=== PATIENT | female | born 1970 | race African-American/Black ===

== ENCOUNTER → 2016-10-28 | Outpatient (CLI) | payer OTHER | LOC: WI 10:51 | PROVIDERS: ATTEND Internal Medicine Geriatric Medicine | DX: Z12.31 Encounter for screening mammogram for malignant neoplasm of breast (principal) | CPT/HCPCS: 77067; G0202 ==

== ENCOUNTER → 2018-06-12 | Outpatient (CLI) | payer OTHER ==
--- NOTE | 2018-06-12 12:04 | WOMENS IMAGING REPORT ---
EXAM DESCRIPTION: 3D SCREENING MAMMO BILAT COMPLETED DATE/TIME: 06/12/2018 9:59 am REASON FOR STUDY: SCREENING MAMMO Z12.31 ENCNTR SCREEN MAMMOGRAM FOR MALIGNANT NEOPLASM OF LISETTE COMPARISON: Mammograms 2013, 2015, 2016 TECHNIQUE: Standard craniocaudal and mediolateral oblique views of each breast recorded using digita l acquisition and breast tomosynthesis. LIMITATIONS: None. FINDINGS: Findings present which are benign by mammographic criteria. No suspicious masses, calcifi cations or architectural distortion. Pertinent benign findings: Since the most recent mammograms 10/28/2016, patient has undergone bilatera l breast reduction. Benign postsurgical changes are present bilaterally. Read with the assistance of CAD. .[facility] - R2 Cenova Version 1.3 .[facility] - R2 Cenova Version 1.3 .[facility] - R2 Cenova Version 2.4 .[facility] - R2 Cenova Version 2.4 .[facility] - R2 Document Review Specialist Version 9.2 Benign mammographic findings may include one or more of the following: Smooth masses, popcorn/rim/co arse calcifications, asymmetries, post-procedure changes, and lesions with long-standing stability. IMPRESSION: BENIGN MAMMOGRAPHIC FINDINGS. BIRADS 2 BREAST DENSITY: b. There are scattered areas of fibroglandular density. BIRAD: 2 BENIGN FINDING(S) RECOMMENDATION: RECOMMENDATION: ROUTINE SCREENING Please continue yearly bilateral screening mammography/tomosynthesis in May 2019 COMMENT: The patient has been notified of the results by letter per MQSA requirements. Additional no tification policies are in place for contacting patient with suspicious or incomplete findings. Quality ID #[id number]: The [employer] recommends an annual screening mammogram for women aged 40 years or over. This facility utilizes a reminder system to ensure that all patients receive reminder letters, and/or direct phone calls for appointments. This includes reminders for routine scr eening mammograms, diagnostic mammograms, or other Breast Imaging Interventions when appropriate. Th is patient will be placed in the appropriate reminder system. The [employer] (ACR) has developed recommendations for screening MRI of the breast s in certain patient populations, to be used in conjunction with mammography. Breast MRI surveillanc e may be appropriate for women with more than 20% lifetime risk of developing breast cancer as deter mined by genetic testing, significant family history of the disease, or history of mantle radiation f or Hodgkins Disease. ACR Practice Guidelines 2008. DBT Technology DBT is a type of tomographic mammography. With conventional mammography, overlapping breast tissue ma y make lesions difficult to detect, even with good compression. DBT uses an x-ray tube that rotates a round the breast, taking images at different angles. These images are then combined to create thin sl ices of the breast that the radiologist can view as a 3D reconstruction. The HoloCaspida unit can perform full-field digital mammograms (2D imaging); or DBT (3D imaging); or both, in a combination mode that quickly performs both the mammogram and the tomosynthesis scan while the breast is still compressed. PQRS 6045F: Fluoroscopic imaging is not utilized for breast tomosynthesis. TECHNICAL DOCUMENTATION: FINDING NUMBER: (1) ASSESSMENT: (1) JOB ID: [id number] [employer]- All Rights Reserved Reading location - IP/workstation name: [email or web address]
== END ==
LOC: WI 09:24
PROVIDERS: ATTEND Internal Medicine Geriatric Medicine
DX: Z12.31 Encounter for screening mammogram for malignant neoplasm of breast (principal)
CPT/HCPCS: 77063; 77067

== ENCOUNTER 2020-04-02 05:39 | Inpatient (IN) | payer OTHER ==
[2020-03-30 11:54] LABS: ABSOLUTE BASOPHILS # (AUTO) 0.1 10^3/uL (0.0-0.2); ABSOLUTE EOSINOPHILS # (AUTO) 0.1 10^3/uL (0.0-0.6); ABSOLUTE LYMPHOCYTES (AUTO) 3.4 10^3/uL (0.5-4.7); ABSOLUTE MONOCYTES (AUTO) 0.4 10^3/uL (0.1-1.4); ABSOLUTE NEUT (AUTO) 4.2 10^3/uL (1.7-8.2); BASOPHILS % (AUTO) 0.9 % (0-2); EOSINOPHILS % (AUTO) 0.8 % (0-6); HEMATOCRIT 38.4 % (36.0-47.0); HEMOGLOBIN 12.9 g/dL (12.0-15.5); LYMPHOCYTES % (AUTO) 41.6 % (13-45); MEAN CORPUSCULAR HEMOGLOBIN 29.9 pg (27.0-33.4); MEAN CORPUSCULAR HGB CONC 33.6 g/dL (32.0-36.0); MEAN CORPUSCULAR VOLUME 89 fl (80-97); MONOCYTES % (AUTO) 5.2 % (3-13); PLATELET COUNT 315 10^3/uL (150-450); RED BLOOD COUNT 4.31 10^6/uL (3.72-5.28); RED CELL DISTRIBUTION WIDTH 14.1 % (11.5-14.0); SEGMENTED NEUTROPHILS % (AUTO) 51.5 % (42-78); TOTAL CELLS COUNTED % (AUTO) 100 %; WHITE BLOOD COUNT 8.2 10^3/uL (4.0-10.5)
[2020-03-30 12:16] LABS: ANION GAP 6 (5-19); BLOOD UREA NITROGEN 12 mg/dL (7-20); CALCIUM 9.7 mg/dL (8.4-10.2); CARBON DIOXIDE 31 mmol/L (22-30); CHLORIDE 101 mmol/L (98-107); GLUCOSE 99 mg/dL (75-110); POTASSIUM 4.6 mmol/L (3.6-5.0)
--- NOTE | 2020-03-30 12:32 | EKG REPORT ---
SEVERITY:- BORDERLINE ECG - SINUS RHYTHM PROBABLE LEFT ATRIAL ABNORMALITY : Confirmed by: Jayce Toney MD 30-Mar-2020 12:30:50
[~2020-04-02 05:39] MED LIST: CEFAZOLIN 2 GM/D5W RTU 2 GM/50 ML RTUPB IV ONE; CEFAZOLIN 2 GM/D5W RTU 2 GM/50 ML RTUPB IV PRN; LACTATED RINGERS 1000 ML IV PRN; LIDOCAINE 0.5% INJ-PF (5 MG/ML) 50 ML SDV SUBCUT PRN
[2020-04-02] MEDS ORDERED: EPHEDRINE SULFATE INJ 50 MG/1 ML AMPULE ONE (07:14)
[2020-04-02] MEDS ORDERED: FENTANYL CITRATE INJ/PF 100 MCG/2 ML AMPUL ONE (07:14)
[2020-04-02] MEDS ORDERED: PROPOFOL INJ 200 MG/20 ML VIAL IV ONE (07:14)
[2020-04-02] MEDS ORDERED: HYDROMORPHONE HCL INJ/PF 2 MG/ML AMPULE ONE (07:14)
[2020-04-02] MEDS ORDERED: MIDAZOLAM 2 MG/2 ML INJ ONE (07:14)
[2020-04-02] MEDS ORDERED: ROPIVACAINE HCL 0.5% INJ/PF (5 MG/1 ML) 30 ML SDV ONE ×2 (07:24→09:14)
[2020-04-02] MEDS ORDERED: BUPIVACAINE INJ/PF LIPOSOME/PF 266 MG/20 ML SDV ONE ×2 (07:47→09:25)
[2020-04-02] MEDS ORDERED: METHYLENE BLUE 50 MG/10 ML AMPULE ONE (08:11)
[2020-04-02] MEDS ORDERED: ONDANSETRON HCL INJ/PF 4 MG/2 ML SDV IV PRN ×2 (08:50→11:07)
[2020-04-02] MEDS ORDERED: PROMETHAZINE HCL INJ 25 MG/1 ML VIAL IV PRN ×2 (08:50)
[2020-04-02] MEDS ORDERED: OXYCODONE-ACETAMINOPHEN 5-325 MG TABLET PO PRN ×2 (08:50)
[2020-04-02] MEDS ORDERED: FENTANYL CITRATE INJ/PF 100 MCG/2 ML AMPUL IV PRN ×3 (08:50)
[2020-04-02] MEDS ORDERED: DIPHENHYDRAMINE HCL 50 MG/ML VIAL IV PRN (08:50)
[2020-04-02] MEDS ORDERED: MEPERIDINE HCL/PF INJ 25 MG/1 ML DISP.SYRIN IV PRN (08:50)
[2020-04-02] MEDS ORDERED: ROPIVACAINE HCL 0.2% INJ/PF (2 MG/ML) 20 ML SDV ONE (09:13)
--- NOTE | 2020-04-02 11:06 | Operative Report ---
Operative Report DATE OF SURGERY: 04/02/20 PREOPERATIVE DIAGNOSIS: Ventral hernia and abdominal pannus POSTOPERATIVE DIAGNOSIS: Ventral wall hernia and abdominal pannus OPERATION: Panniculectomy with abdominal wall hernia repair and abdominal plasty SURGEON: MIKEY DAVID 1ST RN DOCUMENT IMPROVEMENT SPECIALIST: JONATHAN JACBO ANESTHESIA: GA TISSUE REMOVED OR ALTERED: Abdominal pannus COMPLICATIONS: None ESTIMATED BLOOD LOSS: 100 INTRAOPERATIVE FINDINGS: See note PROCEDURE: Patient was brought to the operating awake alert stable condition placed on the operating table in a supine position induced under general anesthesia intubated. The abdomen was then prepped and draped in usual sterile fashion. After appropriate timeout site verification the procedure commenced. Patient was previously marked for her skin folds in preop a curvilinear incision was made from the anterior superior iliac spine on the left right and carried across the pubic symphysis to the left. Dissection was carried down through subcutaneous tissue with a knife and then Bovie cautery to the rectus fascia. We then raised the superior skin flap from the pubic symphysis to the costal margins on both sides including the umbilicus which was markedly scarred down and could not be salvaged during this procedure. Once the skin flap was raised up off the intra-abdominal wall we noted the hernia in the midline which was approximately 4 cm long we excised the sac with Bovie cautery from the fascial edges being careful not to injure the underlying bowel. We then excised the abdominal pannus. This was done with Bovie cautery. Once this was removed we are able to address the ventral hernia the hernia had adhesions of omentum to the edges which were taken down sharply being careful not to injure the underlying bowel once we completely freed up the all the adhesions we then imbricated the midline fascia with interrupted #2 Polysorb sutures from the pubic symphysis up to the umbilicus where the hernia began. We then closed the hernia defect with interrupted #2 Polysorb sutures and imbricated that incision with #2 Polysorb sutures to create a abdominal plasty as well as a hernia repair. Once it was closed we then used a piece of bio a mesh and tacked it onto the anterior abdominal wall this was approximately 20 cm long by 20 cm wide and was tacked down with circumferentially placed 2-0 Vicryl sutures. The undersurface of the abdominal skin was then sprayed with Tisseel tissue sealant and then approximated to the skin on the perineum and closed in 2 layers the for the Jamia's fascia was closed with 2-0 Vicryl suture and the this was done over a subdermal tissue was closed with interrupted 3-0 Vicryl sutures Akira drain exiting both sides of the incision the skin was then closed with intracuticular 4-0 Monocryl Steri-Strips completed the procedure an abdominal binder was placed the patient was awakened in the operating extubated transferred recovery in stable condition no complications BIGG Cintron was present for the entire operation for help with wound retraction wound closure
[2020-04-02] MEDS ORDERED: POTASSI CL 20 MEQ/D5-1/2NS 1L 1,000 ML IV PRN (11:09)
[2020-04-02] MEDS ORDERED: MEPERIDINE HCL/PF INJ 25 MG/1 ML DISP.SYRIN ONE ×2 (11:21→12:03)
[2020-04-02] MEDS: PIPERACILLIN SODIUM/TAZOBACTAM 2.25 GM in NORMAL SALINE 50 ML IV SCH ×2 (13:22→17:17)
[2020-04-02] MEDS: MORPHINE SULFATE 10 MG/ML INJ IV PRN ×3 (13:28→21:38)
[2020-04-02] MEDS ORDERED: NEOSTIGMINE METHYLSULFATE 10 MG/10 ML VIAL ONE (14:59)
[2020-04-02] MEDS ORDERED: PHENYLEPHRINE HCL INJ/PF 10 MG/1 ML SDV ONE (14:59)
[2020-04-02] MEDS ORDERED: METOCLOPRAMIDE HCL INJ/PF 10 MG/2 ML SDV ONE (14:59)
[2020-04-02] MEDS ORDERED: ONDANSETRON HCL INJ/PF 4 MG/2 ML SDV ONE (14:59)
[2020-04-02] MEDS ORDERED: DEXAMETHASONE SOD PHOSPHATE INJ 4 MG/1 ML VIAL ONE (14:59)
[2020-04-02] MEDS ORDERED: LIDOCAINE 2% INJ-PF (20 MG/ML) 2 ML AMPUL ONE (14:59)
[2020-04-02] MEDS ORDERED: ROCURONIUM BROMIDE INJ 50 MG/5 ML VIAL IV ONE (14:59)
[2020-04-02] MEDS ORDERED: GLYCOPYRROLATE 1 MG/5 ML VIAL ONE (14:59)
[2020-04-02] MEDS: FAMOTIDINE INJ/PF 20 MG/2 ML SDV IV SCH (21:39)
[2020-04-03] MEDS: MORPHINE SULFATE 10 MG/ML INJ IV PRN ×5 (05:58→22:28)
[2020-04-03] MEDS: PIPERACILLIN SODIUM/TAZOBACTAM 2.25 GM in NORMAL SALINE 50 ML IV SCH ×6 (06:03→23:35)
[2020-04-03 06:34] LABS: ABSOLUTE MONOCYTES (AUTO) 0.6 10^3/uL (0.1-1.4); ABSOLUTE NEUT (AUTO) 6.7 10^3/uL (1.7-8.2); BASOPHILS % (AUTO) 0.3 % (0-2); HEMATOCRIT 32.7 % (36.0-47.0); HEMOGLOBIN 11.1 g/dL (12.0-15.5); LYMPHOCYTES % (AUTO) 21.6 % (13-45); MEAN CORPUSCULAR HGB CONC 33.9 g/dL (32.0-36.0); MEAN CORPUSCULAR VOLUME 89 fl (80-97); MONOCYTES % (AUTO) 6.1 % (3-13); PLATELET COUNT 295 10^3/uL (150-450); RED CELL DISTRIBUTION WIDTH 14.1 % (11.5-14.0); TOTAL CELLS COUNTED % (AUTO) 100 %; WHITE BLOOD COUNT 9.3 10^3/uL (4.0-10.5)
[2020-04-03 06:59] LABS: ANION GAP 6 (5-19); BLOOD UREA NITROGEN 7 mg/dL (7-20); CALCIUM 8.6 mg/dL (8.4-10.2); CARBON DIOXIDE 30 mmol/L (22-30); CHLORIDE 100 mmol/L (98-107); GLUCOSE 164 mg/dL (75-110)
--- NOTE | 2020-04-03 08:38 | PDOC PROGRESS REPORT ---
Subjective Progress Note for:: 04/03/20 Subjective:: feels ok pain improved, still sl sob, improved has not recieved a insentive spirometer Reason For Visit: K43.2 INCISIONAL HERNIA WITHOUT OBSTRUCTION, R10.9 Physical Exam Vital Signs: Temp Pulse Resp BP Pulse Ox 98.3 F 97 16 128/77 H 94 04/03/20 00:59 04/03/20 00:59 04/03/20 00:59 04/03/20 00:59 04/03/20 00:59 Intake & Output 04/02/20 04/03/20 04/04/20 06:59 06:59 06:59 Intake Total 0 4800 Output Total 1635 Balance 0 3165 Weight 83 kg General appearance: PRESENT: no acute distress Head exam: PRESENT: normocephalic Eye exam: PRESENT: EOMI Ear exam: PRESENT: normal external ear exam Mouth exam: PRESENT: moist Neck exam: PRESENT: full ROM Respiratory exam: PRESENT: clear to auscultation diann Cardiovascular exam: PRESENT: RRR Pulses: PRESENT: normal radial pulses, normal femoral pulses Vascular exam: PRESENT: normal capillary refill Breast: PRESENT: Normal GI/Abdominal exam: PRESENT: soft, other - incision clean, dry reinier's iwth min op Rectal exam: PRESENT: deferred Gentrourinary exam: PRESENT: indwelling catheter Extremities exam: PRESENT: full ROM Musculoskeletal exam: PRESENT: full ROM Neurological exam: PRESENT: alert, awake, oriented to person, oriented to place Psychiatric exam: PRESENT: appropriate affect Skin exam: PRESENT: dry Results Laboratory Results: 04/03/20 06:07 04/03/20 06:07 04/03/20 04/03/20 06:07 06:07 WBC 9.3 RBC 3.70 L Hgb 11.1 L Hct 32.7 L MCV 89 MCH 30.0 MCHC 33.9 RDW 14.1 H Plt Count 295 Seg Neutrophils % 72.0 Sodium 136.0 L Potassium 4.0 Chloride 100 Carbon Dioxide 30 Anion Gap 6 BUN 7 Creatinine 0.58 Est GFR ( Amer) > 60 Glucose 164 H Calcium 8.6 Assessment & Plan - Time Anticipated Discharge Disposition: Home, Self Care Anticipated Discharge Timeframe: within 48 hours - Plan Summary Plan Summary: pod 1 s/p abdominalplasty iwth ventral hernia repair and panniculectomy doing ok kathleen clear liquids has not been out of bed plan advance diet out of bed incentive spirometer.
[2020-04-03] MEDS ORDERED: POTASSI CL 20 MEQ/D5-1/2NS 1L 1,000 ML IV PRN (08:40)
[2020-04-03] MEDS: FAMOTIDINE INJ/PF 20 MG/2 ML SDV IV SCH ×2 (10:06→21:56)
[2020-04-04] MEDS: MORPHINE SULFATE 10 MG/ML INJ IV PRN ×4 (02:34→21:13)
[2020-04-04] MEDS: PIPERACILLIN SODIUM/TAZOBACTAM 2.25 GM in NORMAL SALINE 50 ML IV SCH ×4 (05:06→21:12)
[2020-04-04] MEDS: FAMOTIDINE INJ/PF 20 MG/2 ML SDV IV SCH ×2 (10:28→21:14)
--- NOTE | 2020-04-04 11:28 | PDOC PROGRESS REPORT ---
Subjective Progress Note for:: 04/04/20 Subjective:: c/o left arm and shoulder pain Reason For Visit: K43.2 INCISIONAL HERNIA WITHOUT OBSTRUCTION, R10.9 Physical Exam Vital Signs: Temp Pulse Resp BP Pulse Ox 98.6 F 100 12 147/89 H 94 04/04/20 08:22 04/04/20 08:22 04/04/20 08:22 04/04/20 08:22 04/04/20 08:22 Intake & Output 04/03/20 04/04/20 04/05/20 06:59 06:59 06:59 Intake Total 4800 1450 Output Total 1635 448 Balance 3165 1002 Weight 83 kg 85.1 kg General appearance: PRESENT: mild distress Head exam: PRESENT: normocephalic Eye exam: PRESENT: EOMI Ear exam: PRESENT: normal external ear exam Mouth exam: PRESENT: moist Teeth exam: PRESENT: poor dentation Neck exam: PRESENT: full ROM Respiratory exam: PRESENT: clear to auscultation diann, decreased breath sounds, tachypnea Cardiovascular exam: PRESENT: RRR Pulses: PRESENT: normal radial pulses, normal femoral pulses Vascular exam: PRESENT: normal capillary refill Breast: PRESENT: Normal GI/Abdominal exam: PRESENT: soft Rectal exam: PRESENT: deferred Extremities exam: PRESENT: full ROM Musculoskeletal exam: PRESENT: full ROM Neurological exam: PRESENT: alert, awake, oriented to person, oriented to place Psychiatric exam: PRESENT: appropriate affect Skin exam: PRESENT: dry Results Laboratory Results: 04/03/20 06:07 04/03/20 06:07 Assessment & Plan - Time Anticipated Discharge Disposition: unk Anticipated Discharge Timeframe: unkl - Plan Summary Plan Summary: s/p abdominalplasty and ventral hernia repair now with new onset left arm and shoulder pain sl sob sl left sided chest pain no abd pain plan cta to r/o pe 12 lead ekg stat labs
[2020-04-04 11:59] LABS: HEMATOCRIT 33.6 % (36.0-47.0); HEMOGLOBIN 11.2 g/dL (12.0-15.5); MEAN CORPUSCULAR HEMOGLOBIN 29.7 pg (27.0-33.4); MEAN CORPUSCULAR HGB CONC 33.4 g/dL (32.0-36.0); MEAN CORPUSCULAR VOLUME 89 fl (80-97); PLATELET COUNT 317 10^3/uL (150-450); RED BLOOD COUNT 3.77 10^6/uL (3.72-5.28); RED CELL DISTRIBUTION WIDTH 14.3 % (11.5-14.0)
[2020-04-04 12:06] LABS: ANION GAP 10 (5-19); BLOOD UREA NITROGEN 6 mg/dL (7-20); CARBON DIOXIDE 30 mmol/L (22-30); CHLORIDE 96 mmol/L (98-107); GLUCOSE 143 mg/dL (75-110); POTASSIUM 3.8 mmol/L (3.6-5.0)
[2020-04-04 12:22] LABS: ABSOLUTE LYMPHOCYTES# (MANUAL) 1.8 10^3/uL (0.5-4.7); ABSOLUTE MONOCYTES # (MANUAL) 0.7 10^3/uL (0.1-1.4); BASOPHILS % (MANUAL) 0 % (0-2); EOSINOPHILS % (MANUAL) 1 % (0-6); LYMPHOCYTES % (MANUAL) 14 % (13-45); METAMYELOCYTES % (MANUAL) 2 % (0-1); MONOCYTES % (MANUAL) 6 % (3-13); NUCLEATED RED BLOOD CELLS 1 /100 WBC (0); SEGMENTED NEUTROPHILS % (MAN) 76 % (42-78); TOTAL CELLS COUNTED 100
[2020-04-04 12:23] LABS: ANISOCYTOSIS SLIGHT; PLATELET COMMENT ADEQUATE; POLYCHROMASIA SLIGHT
--- NOTE | 2020-04-04 13:25 | EKG REPORT ---
SEVERITY:- ABNORMAL ECG - SINUS TACHYCARDIA PROBABLE LEFT ATRIAL ABNORMALITY LEFT VENTRICULAR HYPERTROPHY : Confirmed by: Jayce Toney MD 04-Apr-2020 13:25:10
--- NOTE | 2020-04-04 14:32 | RADIOLOGY REPORT (SQ) ---
EXAM DESCRIPTION: CTA CHEST IMAGES COMPLETED DATE/TIME: 04/04/2020 2:13 pm REASON FOR STUDY: Increased Shortness of breath. R/o pe K43.2 INCISIONAL HERNIA WITHOUT OBSTRUCTION OR GANGRENE R10.9 UNSPECIFIED ABDOMINAL PAIN M54 .5 LOW BACK PAIN COMPARISON: None. TECHNIQUE: CT scan of the chest performed using helical scanning technique with dynamic intravenous contrast injection. Images reviewed with lung, soft tissue and bone windows. Reconstructed coronal and sagittal MPR images reviewed. Additional 3 dimensional post-processing performed to develop Maximal Intensity Projection images (KS P). All images stored on PACS. All CT scanners at this facility use dose modulation, iterative reconstruction, and/or weight based d osing when appropriate to reduce radiation dose to as low as reasonably achievable (ALARA). [facility]: Dose Right [facility]: CareDose [facility]: Dose Right [facility]: Teradose 4D [facility]: Horse Sense Shoes CONTRAST TYPE AND DOSE: contrast/concentration: Isovue 350.00 mmol/ml; Total Contrast Delivered: 62. 0 ml; Total Saline Delivered: 80.0 ml Contrast bolus not optimized for the pulmonary arteries or the thoracic aorta. RENAL FUNCTION: Creatinine 0.58 RADIATION DOSE: CT Rad equipment meets quality standard of care and radiation dose reduction techniq ues were employed. CTDIvol: 18.8 - 29.8 mGy. DLP: 529 mGy-cm. . LIMITATIONS: There is motion artifact. There is streak artifact from the orthopedic hardware at the thoracic spine. There is suboptimal contrast opacification of the pulmonary arterial tree. FINDINGS: LUNGS AND PLEURA: Areas of consolidation with air bronchograms are noted at the right midd le lobe, right lower lobe and left lower lobe. There is a small right pleural effusion. There is pittman bsegmental atelectasis at the lingula. No pneumothorax. AORTA AND GREAT VESSELS: No thoracic aortic aneurysm. Contrast bolus not optimized for the aorta. HEART: No pericardial effusion. No significant coronary artery calcifications. PULMONARY ARTERIES: There is suboptimal contrast opacification of the pulmonary arterial tree, the st udy is not diagnostic to evaluate for pulmonary emboli. HILAR AND MEDIASTINAL STRUCTURES: Mildly enlarged lymph node at the superior mediastinum is measuring 11 mm in short axis. HARDWARE: None in the chest. UPPER ABDOMEN: There is a small hiatal hernia. There is elevation of the right hemidiaphragm. THYROID AND OTHER SOFT TISSUES: Heterogeneous enhancement of the thyroid gland. BONES: Extensive orthopedic hardware is transfixing the thoracolumbar spine. There is thoracolumbar scoliosis. 3D MIPS: Confirm above findings. IMPRESSION: 1. Suboptimal contrast opacification of the pulmonary arterial tree. The study is not d iagnostic to evaluate for pulmonary emboli. 2. Consolidation with air bronchograms at the right middle lobe and bilateral lower lobes, may be sec ondary to multifocal pneumonia. Followup CT after treatment recommended to ensure complete resolutio n and exclude a different etiology. 3. Small right pleural effusion. Subsegmental atelectasis at the lingula. 4. Mild mediastinal adenopathy. 5. Heterogeneous enhancement of the thyroid gland. Evaluation with ultrasound as clinically warrante d. 6. Small hiatal hernia. COMMENT: Quality ID # [id number]: Final reports with documentation of one or more dose reduction techniques (e.g., Automated exposure control, adjustment of the mA and/or kV according to patient size, use of iterative reconstruction technique) TECHNICAL DOCUMENTATION: JOB ID: [id number] 2010 [email or web address]- All Rights Reserved Reading location - IP/workstation name: [email or web address]
[2020-04-04] MEDS ORDERED: HEPARIN SOD (PORCINE) 5,000 UNIT/ML 1 ML VIAL SUBCUT ONE (17:00)
[2020-04-04] MEDS: KETOROLAC TROMETHAMINE INJ/PF 30 MG/1 ML SDV IV SCH ×2 (17:14→23:31)
[2020-04-04] MEDS: HEPARIN SOD (PORCINE) 5,000 UNIT/ML 1 ML VIAL SUBCUT SCH (21:14)
[2020-04-05] MEDS: MORPHINE SULFATE 10 MG/ML INJ IV PRN (03:13)
[2020-04-05] MEDS: PIPERACILLIN SODIUM/TAZOBACTAM 2.25 GM in NORMAL SALINE 50 ML IV SCH ×4 (03:15→23:55)
[2020-04-05] MEDS: KETOROLAC TROMETHAMINE INJ/PF 30 MG/1 ML SDV IV SCH ×4 (05:36→23:53)
[2020-04-05 08:25] LABS: ABSOLUTE BASOPHILS # (AUTO) 0.1 10^3/uL (0.0-0.2); ABSOLUTE EOSINOPHILS # (AUTO) 0.1 10^3/uL (0.0-0.6); ABSOLUTE LYMPHOCYTES (AUTO) 3.1 10^3/uL (0.5-4.7); ABSOLUTE MONOCYTES (AUTO) 0.7 10^3/uL (0.1-1.4); ABSOLUTE NEUT (AUTO) 6.7 10^3/uL (1.7-8.2); BASOPHILS % (AUTO) 0.7 % (0-2); EOSINOPHILS % (AUTO) 0.9 % (0-6); HEMATOCRIT 31.9 % (36.0-47.0); HEMOGLOBIN 11.1 g/dL (12.0-15.5); LYMPHOCYTES % (AUTO) 29.4 % (13-45); MEAN CORPUSCULAR HEMOGLOBIN 30.9 pg (27.0-33.4); MEAN CORPUSCULAR HGB CONC 34.9 g/dL (32.0-36.0); MEAN CORPUSCULAR VOLUME 88 fl (80-97); MONOCYTES % (AUTO) 6.2 % (3-13); PLATELET COUNT 320 10^3/uL (150-450); RED BLOOD COUNT 3.61 10^6/uL (3.72-5.28); SEGMENTED NEUTROPHILS % (AUTO) 62.8 % (42-78); TOTAL CELLS COUNTED % (AUTO) 100 %; WHITE BLOOD COUNT 10.6 10^3/uL (4.0-10.5)
[2020-04-05] MEDS: FAMOTIDINE INJ/PF 20 MG/2 ML SDV IV SCH ×2 (09:51→22:44)
[2020-04-05] MEDS: HEPARIN SOD (PORCINE) 5,000 UNIT/ML 1 ML VIAL SUBCUT SCH ×2 (09:51→22:44)
--- NOTE | 2020-04-05 09:53 | PDOC PROGRESS REPORT ---
Subjective Progress Note for:: 04/05/20 Subjective:: feels better less sob Reason For Visit: K43.2 INCISIONAL HERNIA WITHOUT OBSTRUCTION, R10.9 Physical Exam Vital Signs: Temp Pulse Resp BP Pulse Ox 98.5 F 97 16 152/93 H 93 04/05/20 07:47 04/05/20 07:47 04/05/20 07:47 04/05/20 07:47 04/05/20 07:47 Intake & Output 04/04/20 04/05/20 04/06/20 06:59 06:59 06:59 Intake Total 1450 1010 Output Total 448 206 Balance 1002 804 Weight 85.1 kg 83.2 kg General appearance: PRESENT: no acute distress Head exam: PRESENT: normocephalic Eye exam: PRESENT: EOMI Ear exam: PRESENT: normal external ear exam Mouth exam: PRESENT: moist Neck exam: PRESENT: full ROM Respiratory exam: PRESENT: clear to auscultation diann, decreased breath sounds Cardiovascular exam: PRESENT: RRR Pulses: PRESENT: normal radial pulses, normal femoral pulses Vascular exam: PRESENT: normal capillary refill Breast: PRESENT: Normal GI/Abdominal exam: PRESENT: soft Rectal exam: PRESENT: deferred Musculoskeletal exam: PRESENT: full ROM Neurological exam: PRESENT: alert, awake, oriented to person, oriented to place Skin exam: PRESENT: dry Results Laboratory Results: 04/05/20 08:07 04/04/20 11:32 04/04/20 04/04/20 04/05/20 11:32 11:32 08:07 WBC 12.0 H 10.6 H RBC 3.77 3.61 L Hgb 11.2 L 11.1 L Hct 33.6 L 31.9 L MCV 89 88 MCH 29.7 30.9 MCHC 33.4 34.9 RDW 14.3 H 14.0 Plt Count 317 320 Seg Neutrophils % Not Reportable 62.8 Sodium 135.9 L Potassium 3.8 Chloride 96 L Carbon Dioxide 30 Anion Gap 10 BUN 6 L Creatinine 0.49 L Est GFR ( Amer) > 60 Glucose 143 H Calcium 9.0 Impressions: Chest/Abdomen CTA 04/04/20 00:00 IMPRESSION: 1. Suboptimal contrast opacification of the pulmonary arterial tree. The study is not diagnostic to evaluate for pulmonary emboli. 2. Consolidation with air bronchograms at the right middle lobe and bilateral lower lobes, may be secondary to multifocal pneumonia. Followup CT after treatment recommended to ensure complete resolution and exclude a different etiology. 3. Small right pleural effusion. Subsegmental atelectasis at the lingula. 4. Mild mediastinal adenopathy. 5. Heterogeneous enhancement of the thyroid gland. Evaluation with ultrasound as clinically warranted. 6. Small hiatal hernia. Assessment & Plan - Time Anticipated Discharge Disposition: Home, Self Care Anticipated Discharge Timeframe: within 24 hours - Plan Summary Plan Summary: pt improved ct neg for pe less sob thisam left shoulder and arm pain improved will cont ivtoradol and will plan on dc home in am on po toradol.
--- NOTE | 2020-04-05 10:31 | RADIOLOGY REPORT (SQ) ---
EXAM DESCRIPTION: CHEST SINGLE VIEW IMAGES COMPLETED DATE/TIME: 04/05/2020 10:16 am REASON FOR STUDY: sob COMPARISON: CT chest from yesterday. FINDINGS: One-view chest AP portable upright. Low lung volumes with basilar subsegmental atelectasis. No pneumothorax. No abnormal gas in the abdomen. TECHNICAL DOCUMENTATION: JOB ID: [id number] Reading location - IP/workstation name: [email or web address]
[2020-04-05] MEDS: ACETAMINOPHEN 325 MG TABLET PO PRN (11:24)
[2020-04-05] MEDS: METFORMIN HCL 500 MG TABLET PO SCH (17:27)
[2020-04-05] MEDS ORDERED: EZETIMIBE 10 MG TABLET PO SCH (22:00)
[2020-04-06] MEDS: KETOROLAC TROMETHAMINE INJ/PF 30 MG/1 ML SDV IV SCH ×2 (05:05→12:06)
[2020-04-06] MEDS: PIPERACILLIN SODIUM/TAZOBACTAM 2.25 GM in NORMAL SALINE 50 ML IV SCH ×2 (05:06→12:11)
[2020-04-06] MEDS: ACETAMINOPHEN 325 MG TABLET PO PRN (05:07)
[2020-04-06] MEDS: METFORMIN HCL 500 MG TABLET PO SCH (09:30)
[2020-04-06] MEDS: FAMOTIDINE INJ/PF 20 MG/2 ML SDV IV SCH (09:30)
[2020-04-06] MEDS: HEPARIN SOD (PORCINE) 5,000 UNIT/ML 1 ML VIAL SUBCUT SCH (09:30)
--- NOTE | 2020-04-06 09:43 | PDOC DISCHARGE SUMMARY ---
General - Admit/Disc Date/PCP Admission Date/Primary Care Provider: 04/02/20 05:39 RUSTAM LITTLEJOHN PA-C Discharge Date: 04/06/20 - Discharge Diagnosis Final Diagnosis: abdmominal hernia, abdominal pannus - Assessment Summary: Patient admitted to the hospital on the day of surgery for an elective abdominal plasty ventral hernia repair and panniculectomy. She uderewnt the procedure on the day of admission and had a routein benign post op course her diet was advanced to full liquids and now is ready for discharge home she will be discharged home with drains in place and will return to office next week for drain removal. - Additional Information Resuscitation Status: Full Code Discharge Diet: As Tolerated Discharge Activity: Activity As Tolerated, No Lifting Over 10 Pounds Referrals: RUSTAM LITTLEJOHN PA-C [Primary Care Provider] - Home Medications: Ergocalciferol (Vitamin D2) [Vitamin D2] 50,000 unit PO .QMONTHLY 12/22/11 Aspirin [Aspir-Low] 81 mg PO DAILY 03/30/20 Ezetimibe 10 mg PO QHS 03/30/20 Lisinopril/Hydrochlorothiazide [Lisinopril-Hctz 20-12.5 mg Tab] 1 each PO DAILY 03/30/20 Metformin HCl [Metformin HCl ER] 750 mg PO BID 03/30/20 History of Present Illiness History of Present Illness: ANDRES RO is a 50 year old female Physical Exam Vital Signs: Temp Pulse Resp BP Pulse Ox 98.1 F 60 17 137/63 H 98 04/06/20 07:22 04/06/20 07:22 04/06/20 07:22 04/06/20 07:22 04/06/20 07:22 Intake & Output 04/05/20 04/06/20 04/07/20 06:59 06:59 06:59 Intake Total 1010 800 Output Total 206 220 Balance 804 580 Weight 83.2 kg 83.7 kg Results Laboratory Results: WBC 10.6 10^3/uL (4.0-10.5) H 04/05/20 08:07 RBC 3.61 10^6/uL (3.72-5.28) L 04/05/20 08:07 Hgb 11.1 g/dL (12.0-15.5) L 04/05/20 08:07 Hct 31.9 % (36.0-47.0) L 04/05/20 08:07 MCV 88 fl (80-97) 04/05/20 08:07 MCH 30.9 pg (27.0-33.4) 04/05/20 08:07 MCHC 34.9 g/dL (32.0-36.0) 04/05/20 08:07 RDW 14.0 % (11.5-14.0) 04/05/20 08:07 Plt Count 320 10^3/uL (150-450) 04/05/20 08:07 Lymph % (Auto) 29.4 % (13-45) 04/05/20 08:07 Pine % (Auto) 6.2 % (3-13) 04/05/20 08:07 Eos % (Auto) 0.9 % (0-6) 04/05/20 08:07 Baso % (Auto) 0.7 % (0-2) 04/05/20 08:07 Absolute Neuts (auto) 6.7 10^3/uL (1.7-8.2) 04/05/20 08:07 Absolute Lymphs (auto) 3.1 10^3/uL (0.5-4.7) 04/05/20 08:07 Absolute Monos (auto) 0.7 10^3/uL (0.1-1.4) 04/05/20 08:07 Absolute Eos (auto) 0.1 10^3/uL (0.0-0.6) 04/05/20 08:07 Absolute Basos (auto) 0.1 10^3/uL (0.0-0.2) 04/05/20 08:07 Total Counted 100 04/04/20 11:32 Seg Neutrophils % 62.8 % (42-78) 04/05/20 08:07 Seg Neuts % (Manual) 76 % (42-78) 04/04/20 11:32 Lymphocytes % (Manual) 14 % (13-45) 04/04/20 11:32 Atypical Lymphs % 1 % (0) 04/04/20 11:32 Monocytes % (Manual) 6 % (3-13) 04/04/20 11:32 Eosinophils % (Manual) 1 % (0-6) 04/04/20 11:32 Basophils % (Manual) 0 % (0-2) 04/04/20 11:32 Metamyelocytes % 2 % (0-1) H 04/04/20 11:32 Abs Neuts (Manual) 9.4 10^3/uL (1.7-8.2) H 04/04/20 11:32 Abs Lymphs (Manual) 1.8 10^3/uL (0.5-4.7) 04/04/20 11:32 Abs Monocytes (Manual) 0.7 10^3/uL (0.1-1.4) 04/04/20 11:32 Absolute Eos (Manual) 0.1 10^3/uL (0.0-0.6) 04/04/20 11:32 Abs Basophils (Manual) 0.0 10^3/uL (0.0-0.2) 04/04/20 11:32 Nucleated RBCs 1 /100 WBC (0) 04/04/20 11:32 Platelet Comment ADEQUATE 04/04/20 11:32 Polychromasia SLIGHT 04/04/20 11:32 Anisocytosis SLIGHT 04/04/20 11:32 Sodium 135.9 mmol/L (137-145) L 04/04/20 11:32 Potassium 3.8 mmol/L (3.6-5.0) 04/04/20 11:32 Chloride 96 mmol/L (98-107) L 04/04/20 11:32 Carbon Dioxide 30 mmol/L (22-30) 04/04/20 11:32 Anion Gap 10 (5-19) 04/04/20 11:32 BUN 6 mg/dL (7-20) L 04/04/20 11:32 Creatinine 0.49 mg/dL (0.52-1.25) L 04/04/20 11:32 Est GFR ( Amer) > 60 (>60) 04/04/20 11:32 Est GFR (MDRD) Non-Af > 60 (>60) 04/04/20 11:32 Glucose 143 mg/dL (75-110) H 04/04/20 11:32 Calcium 9.0 mg/dL (8.4-10.2) 04/04/20 11:32 COVID-19 Source NASOPHARYNGEAL 03/30/20 10:10 COVID-19 ([place]) NOT DETECTED 03/30/20 10:10 Impressions: Chest/Abdomen CTA 04/04/20 00:00 IMPRESSION: 1. Suboptimal contrast opacification of the pulmonary arterial tree. The study is not diagnostic to evaluate for pulmonary emboli. 2. Consolidation with air bronchograms at the right middle lobe and bilateral lower lobes, may be secondary to multifocal pneumonia. Followup CT after treatment recommended to ensure complete resolution and exclude a different etiology. 3. Small right pleural effusion. Subsegmental atelectasis at the lingula. 4. Mild mediastinal adenopathy. 5. Heterogeneous enhancement of the thyroid gland. Evaluation with ultrasound as clinically warranted. 6. Small hiatal hernia.
[2020-04-06] MEDS ORDERED: HYDROCHLOROTHIAZIDE 12.5 MG TABLET PO SCH (10:00)
[2020-04-06] MEDS ORDERED: LISINOPRIL 10 MG TABLET PO SCH (10:00)
[2020-04-06 10:48] VITALS: BP 159/84
[2020-04-06 11:19] LABS: ABSOLUTE BASOPHILS # (AUTO) 0.1 10^3/uL (0.0-0.2); ABSOLUTE EOSINOPHILS # (AUTO) 0.2 10^3/uL (0.0-0.6); ABSOLUTE LYMPHOCYTES (AUTO) 2.3 10^3/uL (0.5-4.7); ABSOLUTE MONOCYTES (AUTO) 0.4 10^3/uL (0.1-1.4); ABSOLUTE NEUT (AUTO) 3.6 10^3/uL (1.7-8.2); BASOPHILS % (AUTO) 0.9 % (0-2); EOSINOPHILS % (AUTO) 2.4 % (0-6); LYMPHOCYTES % (AUTO) 35.2 % (13-45); MEAN CORPUSCULAR HEMOGLOBIN 31.2 pg (27.0-33.4); MEAN CORPUSCULAR HGB CONC 35.6 g/dL (32.0-36.0); MEAN CORPUSCULAR VOLUME 88 fl (80-97); MONOCYTES % (AUTO) 6.1 % (3-13); PLATELET COUNT 315 10^3/uL (150-450); RED CELL DISTRIBUTION WIDTH 14.2 % (11.5-14.0); SEGMENTED NEUTROPHILS % (AUTO) 55.4 % (42-78); TOTAL CELLS COUNTED % (AUTO) 100 %; WHITE BLOOD COUNT 6.5 10^3/uL (4.0-10.5)
== END 2020-04-06 12:27 | disposition home or self-care (01) | DRG 355 ==
LOC: INOR 05:39 → 4N 12:19
PROVIDERS: ADMIT Surgery; ATTEND Surgery
PROC: 0JB80ZZ Excision of Abdomen Subcutaneous Tissue and Fascia, Open Approach (ICD-10-PCS; 2020-04-02)
PROC: 0WQF0ZZ Repair Abdominal Wall, Open Approach (ICD-10-PCS; principal; 2020-04-02 07:30)
DX: K43.2 Incisional hernia without obstruction or gangrene (principal); E65 Localized adiposity; E11.9 Type 2 diabetes mellitus without complications; E78.00 Pure hypercholesterolemia, unspecified; I10 Essential (primary) hypertension; Z20.828 Contact with and (suspected) exposure to other viral communicable diseases; Z79.899 Other long term (current) drug therapy; Z79.84 Long term (current) use of oral hypoglycemic drugs
CPT/HCPCS: 36415; 64486; 71045; 71275; 76942; 80048; 802; 82947; 84132; 85025; 87635; 88304; 93005; 93010; C1781; C9250; C9290; C9803; J0690; J1100; J1170; J1644; J1885; J2175; J2250; J2270; J2370; J2405; J2543; J2704; J2710; J2765; J2795; J3010; J3480; J3490; Q9968; S0028